=== PATIENT | male | born 1995 | race Two or more races ===

== ENCOUNTER 2020-06-09 09:35 | Inpatient (IN) | payer BC, OTHER ==
[~2020-06-09] VITALS: Ht 180.3 cm; Wt 71.2 kg
[2020-06-09] MEDS ORDERED: ONDANSETRON 2MG/ML, 2ML ONE ×2 (10:07→18:32)
[2020-06-09] MEDS ORDERED: MORPHINE SULFATE 4 MG/ML, 1ML ONE ×3 (10:08→13:06)
[2020-06-09] MEDS: MORPHINE SULFATE 4 MG/ML, 1ML IVPush PRN ×2 (10:29→13:10)
[2020-06-09 10:35] LABS: MEAN CORPUSCULAR HEMOGLOBIN 32.1 pg (27.5-34.5); MEAN PLATELET VOLUME 8.1 fL (7.4-10.4); PLATELET COUNT 269 x10^3/uL (130-400); RED BLOOD COUNT 5.65 x10^6/uL (4.38-5.82); RED CELL DISTRIBUTION WIDTH 13.8 % (9.4-14.8)
[2020-06-09 10:45] LABS: ALBUMIN 4.5 g/dL (3.4-5.0); ANION GAP 20 mmol/L (5-15); CALCIUM 8.9 mg/dL (8.5-10.1); CHLORIDE 91 mmol/L (98-107)
[2020-06-09 10:49] LABS: ALANINE AMINOTRANSFERASE 188 U/L (12-78); ALKALINE PHOSPHATASE 182 U/L (45-117); BILIRUBIN,TOTAL 3.5 mg/dL (0.2-1.0); CREATININE 1.61 mg/dL (0.7-1.3); TOTAL PROTEIN 8.6 g/dL (6.4-8.2)
[2020-06-09 10:59] LABS: MICROSCOPIC INDICATED
[2020-06-09] MEDS ORDERED: SODIUM CHLORIDE 0.9% 1,000 ML IV ONE (11:00)
[2020-06-09] MEDS ORDERED: ONDANSETRON 2MG/ML, 2ML IVPush ONE (11:00)
[2020-06-09] MEDS ORDERED: SODIUM CHLORIDE FLUSH 10ML SYR IVF ONE (11:00)
[2020-06-09] MEDS ORDERED: SODIUM CHLORIDE 0.9% 1,000ML IVBOLUS ONE (11:00)
[2020-06-09 11:21] LABS: MD YES
[2020-06-09 11:22] LABS: BAND#(MANUAL) 0.24 x10^3/uL; BANDS%(MANUAL) 1 % (0-7); LYMPH#(MANUAL) 0.71 x10^3/uL (1-3.4); LYMPHS% (MANUAL) 3 % (22-44); MONOS#(MANUAL) 0.94 x10^3/uL (0.3-2.7); MONOS% (MANUAL) 4 % (2-9); SEG#(MANUAL) 21.71 x10^3/uL (1.8-6.8); SEGS% (MANUAL) 92 % (42-75)
[2020-06-09 11:23] LABS: <PLATELET ESTIMATE> ADEQUATE; <PLT MORPHOLOGY> NORMAL PLT MORPH; <RBC MORPHOLOGY> NORMAL
[2020-06-09] MEDS ORDERED: NS + 40MEQ KCL 500 ML IV SCH ×2 (11:30→12:07)
[2020-06-09] MEDS ORDERED: OMNIPAQUE 350 MG/ML, 100ML BOTTLE ONE (11:31)
--- NOTE | 2020-06-09 11:51 | NUR ---
Pt states pain improved. Bolus infusing. VS updated.
[2020-06-09] MEDS ORDERED: PIPERACILLIN/TAZO/PMX 3.375GM 50 ML IVPB ONE (12:30)
[2020-06-09] MEDS ORDERED: PIPERACILLIN/TAZO/PMX 3.375GM 50 ML ONE (12:53)
[2020-06-09] MEDS ORDERED: PROMETHAZINE 25 MG/ML, 1ML IM PRN (13:00)
[2020-06-09] MEDS ORDERED: ONDANSETRON 2MG/ML, 2ML IVPush PRN (13:00)
[2020-06-09] MEDS ORDERED: POLYETHYLENE GLYCOL 17 GM PACKET PO PRN (13:00)
[2020-06-09] MEDS ORDERED: DOCUSATE 100 MG CAPSULE PO PRN (13:00)
[2020-06-09] MEDS ORDERED: BISACODYL 10 MG SUPP PR PRN (13:00)
[2020-06-09] MEDS ORDERED: ONDANSETRON ODT 4 MG PO PRN (13:00)
[2020-06-09] MEDS ORDERED: ENOXAPARIN 40 MG/0.4 ML ONE (13:06)
[2020-06-09] MEDS: ENOXAPARIN 40 MG/0.4 ML SQ SCH (13:10)
--- NOTE | 2020-06-09 13:11 | NUR ---
TASK RN COVERING MEAL BREAK. CALL TO PHARMACY TO VERIFY IVF POTASSIUM/NS ORDER. CONFERRED WITH ERP, ORDER CHANGED TO 40KCL IN 1LNS. IVF AND ANTIBIOTIC INFUSING PER EMAR. PT REPORTS OF 9/10 ABD PAIN. MORPHINE GIVEN WITH IMMEDIATE RELIEF. LOVENOX GIVEN PER ADMIT ORDER. MOTHER AT BS. VSS/UPDATED IN COMPUTER.
[2020-06-09 13:18] LABS: FREE T4 (FREE THYROXINE) 0.92 ng/dL (0.76-1.46)
[2020-06-09] MEDS ORDERED: PROMETHAZINE 25 MG/ML, 1ML ONE (14:52)
--- NOTE | 2020-06-09 15:00 | NUR ---
Medicated for nausea
[2020-06-09] MEDS ORDERED: MAGNESIUM SULFATE PMX 4GM/100M 100 ML ONE (15:59)
[2020-06-09] MEDS ORDERED: MAGNESIUM SULFATE PMX 4GM/100M 100 ML IVPB ONE (16:00)
[2020-06-09] MEDS ORDERED: OXYcodone IR 5MG TABLET ONE ×2 (16:34→18:32)
[2020-06-09] MEDS: OXYcodone IR 5MG TABLET PO PRN (16:38)
--- NOTE | 2020-06-09 16:44 | NUR ---
Pt medicated for pain, mag gtt infusing.
--- NOTE | 2020-06-09 17:42 | NUR ---
Pt strict NPO
[2020-06-09] MEDS: LACTATED RINGERS 1,000 ML IV SCH ×3 (18:00→22:56)
--- NOTE | 2020-06-09 18:42 | NUR ---
Pt medicated for nausea. Appears comfortable. VS updated.
--- NOTE | 2020-06-09 19:05 | NUR ---
Handoff report to DORIE Copeland
--- NOTE | 2020-06-09 19:08 | NUR ---
BEDSIDE REPORT RECEIVED FROM DORIE RODRIGUEZ FOR TRANSFER OF PATIENT CARE.
--- NOTE | 2020-06-09 20:28 | NUR ---
[place] [facility] [facility] [facility] [place] CONNECTED TO GEOMETRY TUTOR. NO SIGNS OF ACUTE DISTRESS, ASKING FOR PAIN MEDICINE, CALL LIGHT WTIHIN REACH.
[2020-06-09] MEDS ORDERED: morphine SULFATE 10 MG/ML, 1ML ONE (20:31)
[2020-06-09] MEDS: morphine SULFATE 10 MG/ML, 1ML IVPush PRN (20:35)
--- NOTE | 2020-06-09 20:38 | NUR ---
PATIENT MEDICATED PER eMAR, NO FURTHER NEEDS AT THIS TIME.
--- NOTE | 2020-06-09 21:55 | NUR ---
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 UPDATED ON POC, AND NOTIFIED OF ROOM ASSIGNMENT.
[2020-06-09 22:18] VITALS: BP 141/97
--- NOTE | 2020-06-09 22:30 | NUR ---
PATIENT TRANSFERRED TO MEDICAL FLOOR VIA GURNEY WITH UNMANNED EQUIPMENT OPERATOR. ALL PATIENT BELONGINGS GATHERED AND TAKEN WITH PATIENT.
[2020-06-10] MEDS ORDERED: LORazepam 2 MG/ML, 1ML IV PRN ×5
[2020-06-10 00:07] VITALS: BP 145/96
[2020-06-10 00:24] VITALS: BP 147/96
[2020-06-10 00:29] VITALS: BP 145/96
[2020-06-10] MEDS: morphine SULFATE 10 MG/ML, 1ML IVPush PRN ×2 (02:04→06:01)
[2020-06-10 05:36] LABS: BASOPHILS % (AUTO) 0 % (0-1); EOSINOPHILS % (AUTO) 0 % (1-7); LYMPHOCYTES % (AUTO) 7 % (22-44); MEAN CORPUSCULAR HEMOGLOBIN 31.7 pg (27.5-34.5); MEAN CORPUSCULAR HGB CONC 34.2 g/dL (33.2-36.2); MEAN PLATELET VOLUME 8.4 fL (7.4-10.4); MONOCYTES % (AUTO) 6 % (2-9); NEUTROPHILS % (AUTO) 87 % (42-75); PLATELET COUNT 147 x10^3/uL (130-400); RED BLOOD COUNT 4.66 x10^6/uL (4.38-5.82); RED CELL DISTRIBUTION WIDTH 13.9 % (9.4-14.8)
[2020-06-10 05:44] LABS: CHLORIDE 100 mmol/L (98-107)
[2020-06-10 05:57] LABS: ALANINE AMINOTRANSFERASE 114 U/L (12-78); ALBUMIN 3.3 g/dL (3.4-5.0); ALKALINE PHOSPHATASE 120 U/L (45-117); ANION GAP 5 mmol/L (5-15); BILIRUBIN,TOTAL 3.3 mg/dL (0.2-1.0); CALCIUM 7.8 mg/dL (8.5-10.1); CHOL/HDL RATIO 3.5; CHOLESTEROL, TOTAL 116 mg/dL (140-239); CREATININE 0.88 mg/dL (0.7-1.3); HDL CHOL % 28 % (26-37); HDL CHOLESTEROL (DIRECT) 33 mg/dL (40-60); LDL CHOLESTEROL,CALCULATED 55 mg/dL (54-169); LDL/HDL RATIO 1.7 (0.5-3.0); TOTAL PROTEIN 6.4 g/dL (6.4-8.2); TRIGLYCERIDES 139 mg/dL (50-200); VLDL CHOLESTEROL 28 mg/dL (0-25)
[2020-06-10 06:24] LABS: MD SCAN
[2020-06-10 07:23] VITALS: BP 143/92
[2020-06-10] MEDS: SODIUM CHLORIDE 0.9% 1,000 ML IV SCH ×3 (09:33→19:58)
[2020-06-10] MEDS: OXYcodone IR 5MG TABLET PO PRN ×3 (09:43→21:03)
[2020-06-10] MEDS ORDERED: NS + 40MEQ KCL 1,000 ML IV SCH ×2 (12:07)
[2020-06-10 13:07] VITALS: BP 144/97
[2020-06-10] MEDS: POLYETHYLENE GLYCOL 17 GM PACKET PO SCH (14:00)
[2020-06-10 19:48] VITALS: BP 119/92
[2020-06-10] MEDS: ENOXAPARIN 40 MG/0.4 ML SQ SCH (19:58)
[2020-06-11] MEDS: SODIUM CHLORIDE 0.9% 1,000 ML IV SCH ×2 (00:55→05:50)
[2020-06-11 00:56] VITALS: BP 138/90
[2020-06-11] MEDS: OXYcodone IR 5MG TABLET PO PRN ×4 (03:28→23:14)
[2020-06-11 05:47] LABS: BASOPHILS % (AUTO) 0 % (0-1); EOSINOPHILS % (AUTO) 0 % (1-7); LYMPHOCYTES % (AUTO) 10 % (22-44); MEAN CORPUSCULAR HEMOGLOBIN 31.6 pg (27.5-34.5); MEAN CORPUSCULAR HGB CONC 33.5 g/dL (33.2-36.2); MONOCYTES % (AUTO) 6 % (2-9); NEUTROPHILS % (AUTO) 84 % (42-75); PLATELET COUNT 130 x10^3/uL (130-400); RED BLOOD COUNT 4.08 x10^6/uL (4.38-5.82); RED CELL DISTRIBUTION WIDTH 13.9 % (9.4-14.8)
[2020-06-11 05:53] LABS: ALANINE AMINOTRANSFERASE 77 U/L (12-78); ALBUMIN 2.7 g/dL (3.4-5.0); ANION GAP 7 mmol/L (5-15); CALCIUM 7.4 mg/dL (8.5-10.1); CHLORIDE 104 mmol/L (98-107); CREATININE 0.64 mg/dL (0.7-1.3)
[2020-06-11 05:55] LABS: ALKALINE PHOSPHATASE 101 U/L (45-117); BILIRUBIN,TOTAL 2.3 mg/dL (0.2-1.0); TOTAL PROTEIN 5.9 g/dL (6.4-8.2)
[2020-06-11 05:58] LABS: MD NO
[2020-06-11] MEDS: POLYETHYLENE GLYCOL 17 GM PACKET PO SCH (09:49)
[2020-06-11] MEDS ORDERED: POTASSIUM PHOSPHATE 44 MEQ in SODIUM CHLORIDE 0.9% 500 ML IV ONE (10:00)
[2020-06-11 14:05] VITALS: BP 141/100
[2020-06-11 19:33] VITALS: BP 143/86
[2020-06-11] MEDS: ENOXAPARIN 40 MG/0.4 ML SQ SCH (20:44)
[2020-06-12 00:51] VITALS: BP 137/85
[2020-06-12] MEDS: OXYcodone IR 5MG TABLET PO PRN (03:32)
[2020-06-12 05:46] LABS: MEAN CORPUSCULAR HEMOGLOBIN 32.1 pg (27.5-34.5); MEAN PLATELET VOLUME 8.3 fL (7.4-10.4); PLATELET COUNT 177 x10^3/uL (130-400); RED BLOOD COUNT 4.04 x10^6/uL (4.38-5.82)
[2020-06-12 05:59] LABS: ALBUMIN 2.6 g/dL (3.4-5.0); ANION GAP 8 mmol/L (5-15); CALCIUM 8.1 mg/dL (8.5-10.1); CHLORIDE 100 mmol/L (98-107); CREATININE 0.61 mg/dL (0.7-1.3)
[2020-06-12 06:19] LABS: MD YES
[2020-06-12 06:20] LABS: BAND#(MANUAL) 1.08 x10^3/uL; BANDS%(MANUAL) 10 % (0-7)
[2020-06-12 06:21] LABS: <RBC MORPHOLOGY> NORMAL; LYMPH#(MANUAL) 0.86 x10^3/uL (1-3.4); LYMPHS% (MANUAL) 8 % (22-44); MONOS#(MANUAL) 0.97 x10^3/uL (0.3-2.7); MONOS% (MANUAL) 9 % (2-9); SEG#(MANUAL) 7.88 x10^3/uL (1.8-6.8); SEGS% (MANUAL) 73 % (42-75)
[2020-06-12 06:22] LABS: <PLATELET ESTIMATE> ADEQUATE; <PLT MORPHOLOGY> NORMAL PLT MORPH; PMNS WITH VACUOLES 1+
[2020-06-12 07:32] VITALS: BP 145/94
[2020-06-12] MEDS: POLYETHYLENE GLYCOL 17 GM PACKET PO SCH (09:00)
[2020-06-12 13:03] VITALS: BP 148/88
[2020-06-12] MEDS: ENOXAPARIN 40 MG/0.4 ML SQ SCH (22:33)
[2020-06-12 22:38] VITALS: BP 144/97
[2020-06-13 02:00] VITALS: BP 135/84
[2020-06-13 06:19] LABS: BASOPHILS % (AUTO) 0 % (0-1); EOSINOPHILS % (AUTO) 0 % (1-7); LYMPHOCYTES % (AUTO) 13 % (22-44); MEAN CORPUSCULAR HGB CONC 34.2 g/dL (33.2-36.2); MONOCYTES % (AUTO) 22 % (2-9); NEUTROPHILS % (AUTO) 65 % (42-75); PLATELET COUNT 202 x10^3/uL (130-400); RED BLOOD COUNT 4.14 x10^6/uL (4.38-5.82); RED CELL DISTRIBUTION WIDTH 14.1 % (9.4-14.8)
[2020-06-13 06:27] LABS: ALBUMIN 2.5 g/dL (3.4-5.0); ANION GAP 7 mmol/L (5-15); CALCIUM 8.3 mg/dL (8.5-10.1); CHLORIDE 97 mmol/L (98-107); CREATININE 0.56 mg/dL (0.7-1.3)
[2020-06-13 06:51] LABS: MD SCAN
[2020-06-13] MEDS ORDERED: POTASSIUM ACID PHOSPHATE 500 MG TABLET.SOL PO SCH (08:00)
[2020-06-13] MEDS: POLYETHYLENE GLYCOL 17 GM PACKET PO SCH (09:00)
[2020-06-13 10:04] VITALS: BP 137/84
== END 2020-06-13 12:07 | disposition home or self-care (01) | DRG 432 ==
LOC: ED 10:13 → EDIP 12:40 → 3N 22:15 → 3WST 06-12 13:20 → DCLOUNGE 06-13 12:03
PROVIDERS: ADMIT Internal Medicine; ATTEND Family Medicine
DX: K70.11 Alcoholic hepatitis with ascites (principal); K85.21 Alcohol induced acute pancreatitis with uninfected necrosis; N17.0 Acute kidney failure with tubular necrosis; E87.2 Acidosis; E87.6 Hypokalemia; K59.00 Constipation, unspecified; K76.0 Fatty (change of) liver, not elsewhere classified; Y90.0 Blood alcohol level of less than 20 mg/100 ml; Z81.1 Family history of alcohol abuse and dependence; Z83.3 Family history of diabetes mellitus; Z87.891 Personal history of nicotine dependence; F10.10 Alcohol abuse, uncomplicated
CPT/HCPCS: 36415; 74176; 74177; 76700; 80053; 80061; 80069; 80307; 81001; 83036; 83605; 83690; 83735; 84100; 84439; 84443; 85025; 87040; 99291; G0378; J1650; J2405; J2543; J2550; Q9967; J2060; J2270; J3475; J3480; J7030; J7040; J7120